=== PATIENT | male | born 1945 | race Caucasian/White ===

== ENCOUNTER → 2017-09-01 | Outpatient (CLI) | payer OTHER ==
[~2017-09-01] MED LIST: ADV250/50; ASMANEXPT IH; ASPI-1441 PO; CETI-459 PO; CHOL200025 PO; FEXO30TA36 PO; FLUT1DIS28 IH; GLUC-198 PO; GLUCOSAMINE 1,1 EACH PO; LORA-788 PO; MON10 PO; MULT1CAP41 PO
--- NOTE | 2017-09-01 15:16 | RADIOLOGY IMAGING REPORT ---
FACILITY: [facility] [place] PATIENT NAME: Tru Goode : 1945 MR: [id number] V: [id number] EXAM DATE: [id number] ORDERING PHYSICIAN: RAMILA BOO TECHNOLOGIST: Location: [facility] Patient: Tru Goode : 1945 Visit/Account:[id number] Date of Sevice: 09/01/2017 T SPINE W/O CONTRAST COMPARISON: None Additional pertinent history: Muscle twitching Technique: Multiplanar multisequence thoracic spine MRI was performed without gadolinium enhancement. FINDINGS: Vertebral body height and alignment: Mild loss of height at the levels of T10 and T7 and along the flor perior endplate of T4. Marrow signal: Marrow edema involving the inferior endplate of T10 and along the T7 vertebral body al nataly the superior endplate of T4. Vertebral bodies: Anteriorly directed osteophytes at multiple levels with multilevel intervertebral d isc herniations. Findings concerning for acute mild compression fractures at T4, T7 and T10. Thoracic spinal cord signal: Negative Disc spaces: Posterior broad-based disc protrusions at multiple levels. Associated facet hypertrophic changes. Canal and neural foramina: Moderate canal stenosis and mild bilateral neural foraminal narrowing at T 2-T3 and T3-T4. Surrounding soft tissues: Negative IMPRESSION: 1. Mild acute appearing compression fractures at T4, T7 and T10. 2. Spondylitic change contributing to moderate canal stenosis and mild bilateral neural foraminal esperanza rowing at T2-T3 and T3-T4. Report Dictated By: Jean Claude Lopez MD at 09/01/2017 2:54 PM Report E-Signed By: Jean Claude Lopez MD at 09/01/2017 3:12 PM WSN:[email or web address]
== END ==
LOC: MRI 04:12
PROVIDERS: ATTEND Nurse Practitioner Family
DX: M48.54XA Collapsed vertebra, not elsewhere classified, thoracic region, initial encounter for fracture (principal); M48.00 Spinal stenosis, site unspecified
CPT/HCPCS: 72146

== ENCOUNTER → 2017-09-15 | Outpatient (CLI) | payer OTHER ==
--- NOTE | 2017-09-15 15:10 | RADIOLOGY IMAGING REPORT ---
FACILITY: [facility] [place] PATIENT NAME: Tru Goode : 1945 MR: [id number] V: [id number] EXAM DATE: ORDERING PHYSICIAN: RAMILA BOO TECHNOLOGIST: [facility] Patient: Tru Goode : 1945 Visit/Account:[id number] Date of Sevice: 09/15/2017 C SPINE W/O CONTRAST History: Muscle twitching. COMPARISON STUDIES: none TECHNIQUE: Multi-planar, multi-sequence cervical spine MRI was performed without intravenous contras t administration. FINDINGS: Paraspinal soft tissues negative. Vertebral bodies have normal height. Marrow signal intensity appear s benign. 3 mm retrolisthesis C5 on C6. 2 mm retrolisthesis C6 on C7. 2 mm anterolisthesis C7 on T1. Desiccation of the intervertebral discs. Severe loss of disc space height C4-5 through C6-C7. Cervica l and visualized thoracic cord have normal signal intensity. C2-C3: Mild disc bulge without significant stenosis. C3-C4: No central canal stenosis. Mild bilateral foraminal stenosis due to uncovertebral joint and fa cet hypertrophy. C4-C5: Broad-based disc bulge mildly narrows the central canal. There is moderately severe right fora renu stenosis due to uncovertebral joint and facet hypertrophy. C5-C6: Broad-based disc bulge with small central disc extrusion moderately narrows the central canal. There is moderately severe right and moderate left foraminal stenosis. C6-C7: Broad-based disc bulge moderately narrows the central canal. Tiny left paracentral disc extrus ion. There is moderately severe right and moderate left foraminal stenosis. C7-T1: Mild disc bulge without significant central stenosis. There is mild right foraminal stenosis. IMPRESSION: Multilevel cervical spondylosis resulting in moderate central canal stenosis at C5-C6 and C6-C7 as well as moderately severe foraminal stenosis at multiple levels as described above. Report Dictated By: John Valencia MD at 09/15/2017 2:23 PM Report E-Signed By: John Valencia MD at 09/15/2017 3:07 PM WSN:[email or web address]
== END ==
LOC: MRI 00:27
PROVIDERS: ATTEND Nurse Practitioner Family
DX: M47.812 Spondylosis without myelopathy or radiculopathy, cervical region (principal); M48.02 Spinal stenosis, cervical region
CPT/HCPCS: 72141

== ENCOUNTER → 2018-03-03 | Outpatient (CLI) | payer MEDICARE, OTHER ==
[~2018-03-03] MED LIST changes: +GADOBENATE 529MG/1ML 15ML VIAL IVP ONE
--- NOTE | 2018-03-03 12:17 | RADIOLOGY IMAGING REPORT ---
FACILITY: [facility] - [place] PATIENT NAME: Tru Goode : 1945 MR: [id number] V: [id number] EXAM DATE: ORDERING PHYSICIAN: RODRIGO SEYMOUR TECHNOLOGIST: Location: [facility] [place] Patient: Tru Goode : 1945 Visit/Account:[id number] Date of Sevice: 03/03/2018 Study: MRI of the brain without and with gadolinium contrast. Indication: Movement disorder Comparison study: None Contrast used: 10 mL MultiHance gadolinium contrast Technique: Multiplanar MRI sequences were obtained through the brain before and after the administrat ion of gadolinium contrast. The examination demonstrates no evidence of acute intracranial hemorrhage. There is no evidence of ex tra-axial collection or hydrocephalus. There is no abnormal signal identified within the brain parenchyma. The pituitary gland is unremarkable in appearance. There is no evidence of abnormality of the pineal gland. A diffusion-weighted sequence was performed and demonstrates no evidence of active ischemia. There is no evidence of active infarct The orbits are unremarkable. The paranasal sinuses are unremarkable Following the administration of gadolinium contrast, there is no abnormal intracranial contrast enhan cement. IMPRESSION:Unremarkable MRI of the brain without and with intravenous contrast. Report Dictated By: Jai Zimmer at 03/03/2018 12:10 PM Report E-Signed By: Jai Zimmer at 03/03/2018 12:14 PM WSN:[email or web address]
== END ==
LOC: MRI 04:32
PROVIDERS: ATTEND Nurse Practitioner Psychiatric/Mental Health
DX: F98.4 Stereotyped movement disorders (principal)
CPT/HCPCS: 70553; A9577

== ENCOUNTER → 2018-11-29 | Outpatient (CLI) | payer MEDICARE, OTHER ==
[~2018-11-29] MED LIST changes: -GADOBENATE 529MG/1ML 15ML VIAL IVP ONE
[2018-11-29 09:02] LABS: PLATELET COUNT, AUTOMATED 286 K/uL (150-450)
== END ==
LOC: LAB 08:37
PROVIDERS: ATTEND Nurse Practitioner Psychiatric/Mental Health
DX: E78.5 Hyperlipidemia, unspecified (principal); I10 Essential (primary) hypertension; E55.9 Vitamin D deficiency, unspecified; N40.0 Benign prostatic hyperplasia without lower urinary tract symptoms
CPT/HCPCS: 36415; 82040; 82247; 82306; 82310; 82374; 82435; 82465; 82565; 82947; 83718; 84075; 84132; 84153; 84155; 84295; 84443; 84450; 84460; 84478; 84520; 85025